=== PATIENT | male | born 1990 | race Caucasian/White ===

== ENCOUNTER 2018-01-31 23:12 | Emergency (ER) | payer OTHER ==
[2018-02-01] MEDS ORDERED: BACTRIM 160MG/800MG DS TAB PO (00:45)
== END 2018-02-01 00:58 | disposition home or self-care (01) ==
LOC: M ED 23:12
DX: L03.213 Periorbital cellulitis (principal); H10.31 Unspecified acute conjunctivitis, right eye; F41.9 Anxiety disorder, unspecified; F32.9 Major depressive disorder, single episode, unspecified; F42.9 Obsessive-compulsive disorder, unspecified; F60.2 Antisocial personality disorder
CPT/HCPCS: 99283

== ENCOUNTER 2019-07-13 22:26 | Emergency (ER) | payer OTHER, SELFPAY ==
[~2019-07-13] VITALS: Ht 177.8 cm; Wt 77.6 kg
[~2019-07-13 22:26] MED LIST: BACT800T5 PO; OCUF0.25 OD
[2019-07-13] MEDS ORDERED: ONDANSETRON 4 MG ORAL DISINTEGRATING TAB (Q0162 PER 1MG) PO ONE (22:30)
[2019-07-13 23:12] LABS: INFLUENZA A AMPLIFICATION POSITIVE (NEGATIVE); INFLUENZA B AMPLIFICATION NEGATIVE (NEGATIVE)
[2019-07-14] MEDS ORDERED: OSEL75CA PO (01:08)
[2019-07-14] MEDS ORDERED: ONDA4TAB6 PO (01:08)
[2019-07-14] MEDS ORDERED: OSELTAMIVIR PHOSPHATE 75 MG CAP (TAMIFLU) PO ONE (01:15)
[2019-07-14 01:23] VITALS: BP 126/81
== END 2019-07-14 01:20 | disposition home or self-care (01) ==
LOC: M ED 22:26
DX: J09.X2 Influenza due to identified novel influenza A virus with other respiratory manifestations (principal); F41.9 Anxiety disorder, unspecified; F17.210 Nicotine dependence, cigarettes, uncomplicated
CPT/HCPCS: 87502; 99283; Q0162

== ENCOUNTER 2025-04-03 14:02 | Emergency (ER) | payer OTHER ==
[~2025-04-03] VITALS: Ht 175.3 cm; Wt 81.8 kg
[~2025-04-03 14:02] MED LIST changes: +ADDE20CA3 PO; +BUSP5TA PO; +NAPR-837 PO; +ONDA-282 PO; +OSEL75CA PO; +PARO40TA3 PO
[2025-04-03 14:13] VITALS: TEMP 97.2
[2025-04-03] MEDS: KETOROLAC 30 MG/ML 1 ML VIAL IV ONE (16:51)
[2025-04-03 18:00] VITALS: BP 110/57
[2025-04-03 18:02] VITALS: O2SAT 96
== END 2025-04-03 18:25 | disposition home or self-care (01) ==
LOC: EDBD 14:02 → M ED 14:02
DX: S29.011A Strain of muscle and tendon of front wall of thorax, initial encounter (principal); R00.1 Bradycardia, unspecified; X50.0XXA Overexertion from strenuous movement or load, initial encounter; F41.9 Anxiety disorder, unspecified; F32.A Depression, unspecified; Z79.1 Long term (current) use of non-steroidal anti-inflammatories (NSAID); Z79.899 Other long term (current) drug therapy; Y92.9 Unspecified place or not applicable; Y93.89 Activity, other specified; Y99.9 Unspecified external cause status
CPT/HCPCS: 71046; 73030; 93005; 96374; 99284; J1885